=== PATIENT | male | born 1995 | race Caucasian/White ===

== ENCOUNTER 2020-05-06 19:53 | Emergency (ER) | payer MEDICAID ==
[~2020-05-06] VITALS: Ht 162.6 cm; Wt 72.7 kg
[2020-05-06] MEDS ORDERED: ketorolac tromethamine 15mg/ml inj. IM ONE (21:35)
[2020-05-06 22:01] VITALS: BP 136/74
== END 2020-05-06 22:02 | disposition home or self-care (01) ==
LOC: ER 19:54
DX: M54.5 Low back pain (principal); R26.2 Difficulty in walking, not elsewhere classified
CPT/HCPCS: 96372; 99283; J1885; 99285